=== PATIENT | male | born 1950 | race Caucasian/White ===

== ENCOUNTER 2017-02-28 21:46 | Emergency (ER) | payer BC, OTHER, MEDICARE ==
[~2017-02-28] VITALS: Ht 172.7 cm; Wt 82.0 kg
[~2017-02-28 21:46] MED LIST: AMB10 PO; ASPCH81 PO; CIPR-255 PO; DICY10CA12 PO; DOCU-94 PO; LISI-526 PO; LOVAZA PO; METO50TA16 PO; MULT-884 PEG; SERT1TAB71 PO; XPNIN INH
[2017-02-28 21:58] VITALS: TEMP 36.7; Ht 172.7 cm; Wt 82.0 kg
[2017-02-28] MEDS ORDERED: ZOLP10TA6 PO (22:39)
[2017-02-28] MEDS ORDERED: NTRGSL/4 UT (22:39)
[2017-02-28] MEDS ORDERED: OMEGCAP2 PO (22:39)
[2017-02-28] MEDS ORDERED: ASPI325T45 PO (22:39)
[2017-02-28] MEDS ORDERED: CLOP1TAB15 PO (22:39)
[2017-02-28 23:18] LABS: HEMATOCRIT 39.3 % (42-52); MEAN CELL VOLUME 84.2 fL (80-100); MEAN CORPUSCULAR HEMOGLOBIN 30.8 pg (25-34); MEAN CORPUSCULAR HGB CONC 36.6 g/dl (32-36); MEAN PLATELET VOLUME 9.6 fL (7.4-10.4); PLATELET COUNT 239 K/uL (130-400); RED BLOOD COUNT 4.67 M/uL (4.7-6.1); WHITE BLOOD COUNT 6.22 K/uL (4.8-10.8)
[2017-02-28 23:27] LABS: PARTIAL THROMBOPLASTIN RATIO 1.2; PROTHROMBIN TIME (PATIENT) 10.5 SECONDS (9.0-12.0)
[2017-02-28 23:34] LABS: ALB/GLOB RATIO 1.2 (0.9-2); ALKALINE PHOSPHATASE 70 U/L (45-117); ALT/SGPT 50 U/L (12-78); AST/SGOT 31 U/L (15-37); BLOOD UREA NITROGEN 16 mg/dl (7-18); BUN/CREATININE RATIO 21.3 (10-20); CALCIUM 8.9 mg/dl (8.5-10.1); CARBON DIOXIDE 23 mmol/L (21-32); CHLORIDE 101 mmol/L (98-107); CKMB/CK RATIO 1.6 (0-3.0); CREATININE 0.77 mg/dl (0.60-1.40); GLUCOSE 145 mg/dl (70-99); POTASSIUM 3.9 mmol/L (3.5-5.1); SODIUM 136 mmol/L (136-145)
--- NOTE | 2017-02-28 23:48 | EMERGENCY ROOM VISIT NOTE ---
History Report prepared by Piper: Fernando Travis Under the Supervision of: Dr. Harish Merida M.D. First contact with patient: 23:08 Chief Complaint: CARDIAC ASSESSMENT Stated Complaint: CHEST HURT, LEFT SIDE OF FACE/NECK TINGLING, NAUSE Nursing Triage Summary: Pt reports he developed chest discomfort this evening at approx 1830. Pt reports at approx 1930 he developed N/T in L arm and face. Pt took aspirin following the onset of chest pain and nitro prior to coming to ER. History of Present Illness The patient is a 66 year old male with a history of coronary artery disease who presents to the Emergency Room with complaints of improving chest pain that started at 1830 tonight. The patient describes a tight sensation in the center of his chest. He had similar pain four days ago. He was also experiencing left arm numbness, left leg numbness, and some left jaw / face numbness. The patient had Nitroglycerin prior to arrival, which did not help with the pain. He also had two full-strength Aspirins. He developed a headache and nausea after the nitro. The patient denies shortness of breath, vomiting, back or abdominal pain. He denies any recent episodes of syncope. He has a history of coronary artery disease and had three stents placed at [facility] in 2006. The patient takes Plavix and Aspirin daily. He does not smoke. He has a history of hypertension and hyperlipidemia. Source of History: patient Onset: 1830 tonight Position: chest Quality: other (tightness) Timing: other (improving) Associated Symptoms: + LOC, + headache, + nausea, No SOB, No abdominal pain , No back pain, No vomiting Review of Systems See HPI for pertinent positives & negatives. A total of 10 systems reviewed and were otherwise negative. Past Medical & Surgical Medical Problems: (1) Angioplasty (2) Asthma (3) Benign hypertension (4) Diabetes (5) Heart disease Family History FH: cancer FH: diabetes mellitus FH: heart disease FH: hypertension Social History Smoking Status: Former Smoker Alcohol Use: occasionally Marital Status: Occupation Status: employed Current/Historical Medications Scheduled Aspirin (Aspirin), 325 MG PO DAILY Clopidogrel (Plavix), 75 MG PO DAILY Docusate Sodium (Colace), 1 CAP PO BID Lisinopril (Prinivil), 30 MG PO QAM Metoprolol Tartrate (Lopressor) (Lopressor), 50 MG PO BID Multiple Vitamin (Multi Vitamin Daily), 1 TAB PEG QDL Nitroglycerin (Nitrostat), 0.4 MG UT PRN [place]-3 Fatty Acids (Fish Oil), 1 CAP PO DAILY Sertraline Hcl (Zoloft), 50 MG PO DAILY Zolpidem Tartrate (Zolpidem Tartrate), 1 TAB PO HS Allergies Coded Allergies: POLLEN (Verified Allergy, Intermediate, chest/nasal congestion, 02/28/17) Physical Exam Vital Signs Date Time Temp Pulse Resp B/P Pulse Ox O2 Delivery O2 Flow Rate FiO2 03/01/17 00:30 54 16 124/69 97 Room Air 02/28/17 23:01 97 Room Air 02/28/17 23:00 60 16 113/67 97 Room Air 02/28/17 22:44 63 02/28/17 21:58 36.7 61 20 140/84 96 Room Air Physical Exam GENERAL: Patient is mildly anxious-appearing and in no acute distress. HEENT: No acute trauma, normocephalic atraumatic, mucous membranes moist, no nasal congestion, no scleral icterus. NECK: No stridor, no adenopathy, no meningismus, trachea is midline. LUNGS: No dyspnea. Clear to auscultation and equal bilaterally. No wheeze, no rhonchi. HEART: Regular rate and rhythm. No murmurs, rubs, gallops appreciated. ABDOMEN: Soft, nontender, bowel sounds positive, no masses appreciated, no peritonitis. BACK: No midline tenderness, no CVA tenderness EXTREMITIES: Normal motion all extremities, no cyanosis, no edema. NEUROLOGIC: Alert and oriented, no acute motor or sensory deficits, no focal weakness, cranial nerves grossly intact. SKIN: No rash, no jaundice, no diaphoresis. Medical Decision & Procedures ER Provider Diagnostic Interpretation: X ray results are stated below per my interpretation: Chest: 1 view: No infiltrate, no effusion, normal cardiac border. No change from previous CXR. Laboratory Results 02/28/17 22:45 02/28/17 22:45 Test 02/28/17 22:45 03/01/17 00:13 Red Blood Count 4.67 M/uL (4.7-6.1) Mean Corpuscular Volume 84.2 fL (80-100) Mean Corpuscular Hemoglobin 30.8 pg (25-34) Mean Corpuscular Hemoglobin Concent 36.6 g/dl (32-36) RDW Standard Deviation 36.8 fL (36.4-46.3) RDW Coefficient of Variation 12.0 % (11.5-14.5) Mean Platelet Volume 9.6 fL (7.4-10.4) Prothrombin Time 10.5 SECONDS (9.0-12.0) Prothromb Time International Ratio 1.0 (0.9-1.1) Activated Partial Thromboplast Time 30.1 SECONDS (21.0-31.0) Partial Thromboplastin Ratio 1.2 Anion Gap 12.0 mmol/L (3-11) Est Creatinine Clear Calc Drug Dose 92.5 ml/min Estimated GFR () 110.4 Estimated GFR (Non- 95.2 BUN/Creatinine Ratio 21.3 (10-20) Calcium Level 8.9 mg/dl (8.5-10.1) Total Bilirubin 0.3 mg/dl (0.2-1) Aspartate Amino Transf (AST/SGOT) 31 U/L (15-37) Alanine Aminotransferase (ALT/SGPT) 50 U/L (12-78) Alkaline Phosphatase 70 U/L (45-117) Total Creatine Kinase 361 U/L (39-308) Creatine Kinase MB 5.7 ng/ml (0.5-3.6) Creatine Kinase MB Ratio 1.6 (0-3.0) Troponin I < 0.015 ng/ml (0-0.045) Total Protein 7.2 gm/dl (6.4-8.2) Albumin 3.9 gm/dl (3.4-5.0) Globulin 3.3 gm/dl (2.5-4.0) Albumin/Globulin Ratio 1.2 (0.9-2) Bedside Troponin I 0.000 ng/ml (0-0.045) Laboratory results as reviewed by me. ECG Indication: chest pain Rate (beats per minute): 62 Rhythm: normal sinus Findings: no acute ischemic change, no ectopy Change: Repeat EKG: Normal sinus at 61, no ectopy or ischemic changes. No change from first EKG. ED Course 2310: The patient was evaluated in room A9b. A complete history and physical exam was performed. 2350: Discussed the pros and cons of staying in the hospital versus going home. The patient states that he wishes to go home. He states that his CK is always elevated. 0030: Reassessed the patient. Discussed the discharge instructions with him. He verbalized understanding and agreement and is comfortable going home. The patient is ready for discharge. Medical Decision Differential: Cardiac Ischemia (STEMI, NSTEMI, Unstable Angina, etc), Aortic Dissection, Arrhythmia, Pulmonary Embolism, Pneumonia, Pneumothorax, MSK, Infectious, Pericarditis/Myocarditis, Esophageal Rupture, Gastrointestinal, amongst other pathologies entertained. 66 yr old male with history of stenting several years ago arrives with periodic substernal chest pressure radiating to left shoulder/face/leg. 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 Essentially without symptoms currently. Trop x 2 negative, EKG x 2 unremarkable and otherwise work- up benign. Patient feels well and is not interested in staying in hospital. Discussed risks of discharge with his CAD history. Aware RTED at any time if worsening or other concerns. Made clear to patient he must follow up with PCP/ Cards for further evaluation/testing. He notes he can easily get in with them any time and get stress testing. I do not feel that he is having active ACS, PE , nor dissection. Impression Primary Impression: Substernal chest pain Scribe Attestation The scribe's documentation has been prepared under my direction and personally reviewed by me in its entirety. I confirm that the note above accurately reflects all work, treatment, procedures, and medical decision making performed by me. Departure Information Dispostion Home / Self-Care Referrals Inderjit Luis MD (PCP) Forms IMPORTANT VISIT INFORMATION Patient Instructions ED Chest Pain Atypical Unkn Cause, My [facility] Additional Instructions It is very important that you follow up with your primary care provider for further evaluation and treatment. Especially to discuss further cardiac work- up.
[2017-03-01 00:30] VITALS: BP 124/69; PULSE 54; O2SAT 97
--- NOTE | 2017-03-01 06:48 | DIAGNOSTIC IMAGING REPORT ---
CHEST ONE VIEW PORTABLE CLINICAL HISTORY: Chest pain dyspnea COMPARISON STUDY: 06/06/2016 FINDINGS: The bones soft tissues and hemidiaphragms are normal. The cardiomediastinal silhouette is normal. The lungs are clear. The pulmonary vasculature is normal. IMPRESSION: Negative chest. Electronically signed by: Ricardo Spivey M.D. 03/01/2017 6:46 AM Dictated Date/Time: 03/01/2017 6:46 AM
== END 2017-03-01 00:48 | disposition home or self-care (01) ==
LOC: C.EDB 21:48 → C.EDA 03-01 00:48
DX: R07.2 Precordial pain (principal); J45.909 Unspecified asthma, uncomplicated; I10 Essential (primary) hypertension; E11.9 Type 2 diabetes mellitus without complications; I51.9 Heart disease, unspecified; Z83.3 Family history of diabetes mellitus; Z82.49 Family history of ischemic heart disease and other diseases of the circulatory system; Z87.891 Personal history of nicotine dependence; Z79.82 Long term (current) use of aspirin

== ENCOUNTER → 2017-11-14 | Outpatient (CLI) | payer OTHER, MEDICARE ==
[~2017-11-14] MED LIST changes: -AMB10 PO; -ASPCH81 PO; +ASPI325T45 PO; -CIPR-255 PO; +CLOP1TAB15 PO; -DICY10CA12 PO; -LOVAZA PO; +NTRGSL/4 UT; +OMEGCAP2 PO; +OPTIRAY 320 IV PRN; -XPNIN INH; +ZOLP10TA6 PO
--- NOTE | 2017-11-14 14:33 | DIAGNOSTIC IMAGING REPORT ---
CT OF THE CHEST WITH IV CONTRAST CLINICAL HISTORY: Shortness of breath. Asthma. COMPARISON STUDY: Chest CTs March 17, 2007 and September 04, 2012. TECHNIQUE: Following IV administration of 94 mL of Optiray-320, helical axial images of the chest were obtained. Sagittal and coronal reconstructions were viewed as well as maximal intensity projections on an independent 3-D workstation. A dose lowering technique was utilized adhering to the principles of ALARA. CT DOSE: 445.45 mGycm FINDINGS: No enlarged axillary, mediastinal or hilar lymph nodes are present. The size the heart is normal. There is extensive coronary artery calcification. There is minimal upper lobe predominant paraseptal emphysema. There is a small hiatal hernia. There is no pericardial effusion. No thoracic aortic dissection is present. There is no central pulmonary embolus. The central airways are patent. There is no consolidation to suggest pneumonia. Mild subpleural linear and groundglass opacities suggest atelectasis. There is no pneumothorax or pleural effusion. There is no consolidation. No honeycombing or traction bronchiectasis is present. The bony thorax and upper abdomen are unremarkable. IMPRESSION: 1. No acute intrathoracic findings. 2. Minimal upper lobe predominant paraseptal emphysema. 3. Extensive coronary artery calcification. 4. Small hiatal hernia. Electronically signed by: Shimon Ponce M.D. 11/14/2017 2:32 PM Dictated Date/Time: 11/14/2017 2:22 PM
== END | disposition home or self-care (01) ==
LOC: C.CTS 13:18
PROVIDERS: ATTEND Internal Medicine Pulmonary Disease
DX: J45.909 Unspecified asthma, uncomplicated (principal); R06.02 Shortness of breath; I25.84 Coronary atherosclerosis due to calcified coronary lesion; K44.9 Diaphragmatic hernia without obstruction or gangrene

== ENCOUNTER 2019-03-15 11:38 | Inpatient (IN) ==
[2019-03-15] MEDS ORDERED: SODIUM CHLORIDE 0.9% 1000ML 1,000 ML IV SCH (12:15)
--- NOTE | 2019-03-15 12:21 | XRay Report ---
XR chest 1V portable CLINICAL HISTORY: Stroke like symptoms COMPARISON STUDY: 02/28/2017 FINDINGS: The heart is enlarged. There is aortic tortuosity/ectasia. There is no focal pulmonary cons olidation. There is mild interstitial thickening. An element of mild pulmonary vascular congestion ca nnot be excluded. There are no cystic or pleural effusions.[ IMPRESSION: 1. Mild interstitial thickening. An element of mild pulmonary vascular congestion cannot be excluded. 2. No evidence of focal pulmonary consolidation Electronically signed by: Keshawn Navarro M.D. 03/15/2019 12:20 PM
[2019-03-15 12:49] LABS: Basophils # (auto) 0.05 K/uL (0-0.2); Basophils % (auto) 0.9 %; Eosinophils # (auto) 0.29 K/uL (0-0.5); Eosinophils % (auto) 5.2 %; Hematocrit (blood only) 39.7 % (42-52); Hemoglobin 14.5 g/dL (14.0-18.0); Immature Granulocytes # (auto) 0.02 K/uL (0.00-0.02); Immature Granulocytes % (auto) 0.4 %; Lymphocytes # (auto) 2.21 K/uL (1.2-3.4); Lymphocytes % (auto) 39.8 %; Mean Corpuscular Hgb Conc 36.5 g/dL (32-36); Mean Corpuscular Volume 84.5 fL (80-100); Mean Platelet Volume 9.7 fL (7.4-10.4); Monocytes # (auto) 0.56 K/uL (0.11-0.59); Monocytes % (auto) 10.1 %; Neutrophils # (auto) 2.42 K/uL (1.4-6.5); Neutrophils % (auto) 43.6 %; Platelet Count 229 K/uL (130-400); RDW Coefficient of Variation 12.1 % (11.5-14.5); RDW Standard Deviation 37.4 fL (36.4-46.3); White Blood Count 5.55 K/uL (4.8-10.8)
[2019-03-15 12:58] LABS: Prothrombin Time 10.3 Seconds (9.0-12.0)
[2019-03-15 13:14] LABS: Alanine Aminotransferase 48 U/L (12-78); Albumin Globulin Ratio 1.2 (0.9-2); Albumin Level 3.9 gm/dl (3.4-5.0); Alkaline Phosphatase 67 U/L (45-117); Aspartate Aminotransferase 28 U/L (15-37); BUN Creatinine Ratio 20.6 (10-20); Bilirubin,Total 0.3 mg/dl (0.2-1); Blood Urea Nitrogen 12 mg/dl (7-18); Calcium 8.9 mg/dl (8.5-10.1); Carbon Dioxide 20 mmol/L (21-32); Chloride 100 mmol/L (98-107); Creatinine Clr Calc Pharmacy 128.6 ml/min; Est GFR (African American) 123.2; Est GFR (Non-African American) 106.3; Globulin 3.2 gm/dl (2.5-4.0); Glucose 132 mg/dl (70-99); Potassium 4.2 mmol/L (3.5-5.1); Sodium 130 mmol/L (136-145); Total Protein 7.1 gm/dl (6.4-8.2); Troponin I < 0.015 ng/ml (0-0.045)
--- NOTE | 2019-03-15 13:25 | CT Scan Report ---
CT head/brain wo con CLINICAL HISTORY: Possible stroke. Left leg weakness. Left facial and leg paresthesias. COMPARISON STUDY: MRI the brain performed March 2014 TECHNIQUE: Axial CT of the brain is performed from the vertex to the skull base. IV contrast was not administered for this examination. A dose lowering technique was utilized adhering to the principles of ALARA. CT DOSE: 537.48 mGy.cm FINDINGS: No intra or extra-axial mass lesions are visualized. There is no CT evidence of acute cortical infarc tion. There is no evidence of midline shift. There is no acute hemorrhage. No calvarial fractures ar e visualized. There are patchy minor matter hypodensities likely on a small vessel basis. There is no evidence of pathologic ventricular dilatation. Postsurgical changes are present in the paranasal sinuses. There is no evidence of acute sinusitis. IMPRESSION: No acute intracranial findings Electronically signed by: Keshawn Navarro M.D. 03/15/2019 1:24 PM
[2019-03-15] MEDS ORDERED: MECLIZINE HCL 25 MG TAB PO STA (13:28)
[2019-03-15 13:56] LABS: Lyme Ab IgG w/WB Rflx Negative (Negative); Lyme Ab IgM w/WB Rflx Negative (Negative)
--- NOTE | 2019-03-15 16:54 | Magnetic Resonance Report ---
MRI OF THE BRAIN WITHOUT CONTRAST CLINICAL HISTORY: Left leg weakness. Left facial and leg paresthesias. Possible acute stroke. COMPARISON STUDY: CT scan of the brain dated 03/15/2019 FINDINGS: Sagittal T1, axial diffusion, proton density and T2 weighted axial, coronal FLAIR, and axial T1-weigh ramakrishna images were acquired. No intra or extra-axial mass lesions are visualized There is 7 mm focus of restricted water diffusion within the right lateral thalamus consistent with a n acute/subacute infarct. There is no evidence of ventricular dilatation. Proton density T2-weighted and FLAIR images reveal scattered foci of increased T2 signal within the w vikram matter, likely on a small vessel basis. There is a focus of increased T2 signal corresponding to the acute/subacute right thalamic infarct. There is a lacunar infarct adjacent to the right lateral ventricle anteriorly. There are no abnormal flow voids. IMPRESSION: 1. 7 mm acute/subacute infarct within the right lateral thalamus. Electronically signed by: Keshawn Navarro M.D. 03/15/2019 4:53 PM
--- NOTE | 2019-03-15 17:33 | History & Physical Report ---
Date of Service March 15, 2019 Assessment & Plan (1) CVA (cerebral vascular accident): This is a 68-year-old male who has a significant past medical history of CAD history of PCI x3 in 2007, HTN, HLD, PAD with mesenteric artery stenosis, T2 DM A1c 6.5, history of TIA, history of Lyme's disease with chronic arthralgias, vertigo, depression and anxiety, BPH who presents to [facility] secondary to dizziness along with left-sided numbness times 1 day. ER evaluation reveals unremarkable CBC, BMP significant for sodium 130, potassium 4.2, CO2 20, BUN 12, creatinine 0.57, glucose 132, troponin WNL, Lyme's disease IgG, IgM negative. ECG revealed normal sinus rhythm 61 bpm, OH interval 206 ms, QTc 392 ms Telemetry reveals normal sinus rhythm Patient was hypertensive during ED visit, latest BP 164/96 CT brain negative for acute abnormality After further evaluation of patient there was no neuro focal deficits noted on exam. Ambulated patient about hallway without difficulty or recurrence of symptoms. Patient is adamant about returning home secondary to sons being home for [facility]. Given patient's symptoms it does warrant further evaluation to rule out CVA. Patient is already on dual and a platelet therapy with aspirin and Plavix secondary to CAD He is intolerant to statin and therefore takes Lovaza STAT MRI ordered to rule out CVA MRI: IMPRESSION: 1. 7 mm acute/subacute infarct within the right lateral thalamus. There is a lacunar infarct adjacent to the right lateral ventricle anteriorly. Given MRI results pt will be admitted to telemetry consult neurology - spoke with Dr. Wallace allow permissive HTN 24-48hrs, will hold lisinopril and metoprolol Obtain CTA Head/Neck Echocardiogram Fasting lipid panel, A1C in am. PT/OT/ST eval Risk reduction of comorbidities T2DM, HTN, HLD Increase ASA to 2 - 81mg daily and continue plavix will discuss re-initiation of statin therapy (has trialed in past but d/c secondary to chronic arthralgias from lyme disease) (2) CAD (coronary artery disease): hx of stent x 3 RCA, Cx and OM in 2006 continue ASA, Plavix BB and DANIELLA on hold for permissive HTN (3) HTN (hypertension): Normally controlled on lisinopril and the metoprol Hold in the setting of permissive hypertension (4) T2DM (type 2 diabetes mellitus): Last A1C 6.5 11/2018 obtain A1C in am accuchecks AC/HS Novolog SS per protocol (5) HLD (hyperlipidemia): obtain fasting lipid panel Last Chol Panel 01/09/19 Total cholesterol 153, HDL 31, triglycerides 273, LDL 97 continue lovaza Will discuss statin therapy (6) Chronic hyponatremia: Na stable at 130 Recently saw nephrology 01/2019, felt pseudohyponatremia no fluid restrtiction recommended follow bmp (7) Depression with anxiety: continue zoloft (8) DVT prophylaxis: SCDS/TEDS, encourage ambulation Disposition: d/c to home when able Follow up: PCP Dr. Luis upon discharge Pt was seen and examined in collaboration with Dr. Mcnair, please see addendum Attending Addendum: delayed entry date of service as noted above care coordinated with FLORENCE Hayward please refer to her notes for full details, I agree with her notes patient seen and examined, records reviewed by myself as well on exam, patient seen sitting up in good spirits states his symptoms have resolved denies headache, dizziness no chest pain, dyspnea no other symptoms VS noted and reviewed oriented x 3, not in distress, speaks in sentences with no effort nor accessory muscle use normal rate, regular rhythm, no murmurs clear breath sounds bilaterally non distended, soft, nontender no bipedal edema, erythema, warmth no neuro deficits noted Hg 14.5 Crea 0.57 Brain MRI IMPRESSION: 1. 7 mm acute/subacute infarct within the right lateral thalamus. ASSESSMENT AND PLAN ACUTE CVA increase ASA to 162mg/day HTN hold Lisinopril to prevent hypotension Tristen Mcnair MD other diagnoses and plan of care as per FLORENCE Hayward notes Eddie Mcnair MD History of Present Illness Chief Complaint: Dizziness, numbness to L hand/upper lip x 1 day. Primary Care Provider: Inderjit Luis MD This is a 68-year-old male who has a significant past medical history of CAD history of PCI x3 in 2007, HTN, HLD, PAD with mesenteric artery stenosis, T2 DM A1c 6.5, history of TIA, history of Lyme's disease with chronic arthralgias, vertigo, depression and anxiety, BPH who presents to [facility] secondary to dizziness along with left-sided numbness times 1 day. Patient states yesterday afternoon he was getting off tractor whenever he developed dizziness, "wooziness," his left leg buckled. He did not fall. Because of dizziness he went home to lay down to, "sleep it off." He noticed later that evening his left hand felt numb, along with left upper lip. He states "I figured if I woke up in the morning and symptoms were still there I would come get evaluated." Currently upon my evaluation he feels well with occasional, "wooziness." He denies any fever, chills, sweats, recent illness, lightheadedness, syncope, fall, chest pain, palpitations, shortness of breath, LOPEZ, hemoptysis, nausea, vomiting, diarrhea, change in bowel or urinary habits. He has had slight weight gain over the winter months but no swelling of extremities. His appetite is good. Patient notes the dizziness is not new for him as he has been following with outpatient providers for approximately 4 months. He was alarmed due to the change of symptoms with the numbness which prompted evaluation. Patient has been followed by Dr. Hunt in which he underwent zio patch 11/2018 which showed predominant normal sinus rhythm but there was apparent 2-1-second degree AV block type I. It was felt that patient may require a pacer in the future, but not currently. He had a carotid ultrasound back in 08/2018 which revealed no hemodynamic significant stenosis of the bilateral carotids. Saw Dr. Wallace 09/02/19 in which he was felt symptoms are secondary to recurrent vestibulopathy Pt saw [facility] otolaryngology vest[facility] and felt symptoms not likely from BPPV or vestibular dysfunction and was discharged from rehab. 12/24/18 A1C 6.5 12/26/18 patient underwent NM myocardial perfusion imaging study which was nega tive for inducible ischemia, LVEF 78% 01/09/19 cholesterol panel: Total cholesterol 153, HDL 31, triglycerides 273, LDL 97 (patient is statin intolerant secondary to history of Lyme's disease with chr onic arthralgias and does not tolerate statin therefore is on fish oil.) 01/2019 saw nephrology secondary to chronic hyponatremia. It was felt hyponatremia may be secondary to pseudohyponatremia and at this time there is no recommendation for fluid restriction or NaCl tabs. He had a Serum osmolality 291, urine osmolality 238, random urine sodium 58. Allergies Allergy/AdvReac Type Severity Reaction Status Date / Time pollen extracts Allergy Intermediate chest/nasal Verified 03/15/19 13:11 congestion Home Medications Home Medications Medication Instructions Recorded Confirmed Type clopidogrel [Plavix] 75 mg PO DAILY 03/15/19 03/15/19 History metoprolol tartrate 25 mg PO BID 03/15/19 03/15/19 History multivitamin 1 tab PO DAILY 03/15/19 03/15/19 History nitroglycerin [Nitrostat] 0.4 mg SUBLINGUAL DIRECTED PRN 03/15/19 03/15/19 History omega-3 acid ethyl esters [Lovaza] 2 cap PO DAILY 03/15/19 03/15/19 History sertraline 50 mg PO DAILY 03/15/19 03/15/19 History zolpidem [Ambien] 5 mg PO HS 03/15/19 03/15/19 History aspirin [Ecotrin Low Strength] 162 mg PO DAILY 30 Days #60 tab 03/16/19 Rx rosuvastatin [Crestor] 5 mg PO HS 30 Days #30 tab 03/16/19 Rx Past Med/Surg History Medical History TIA (transient ischemic attack) (Resolved) BPH (benign prostatic hyperplasia) CAD (coronary artery disease) Depression with anxiety HLD (hyperlipidemia) HTN (hypertension) History of Lyme disease T2DM (type 2 diabetes mellitus) Vertigo Surgical History H/O colonoscopy with polypectomy History of nasal surgery History of percutaneous coronary intervention History of PCI to right coronary artery, circumflex and OM at [facility] 2006 History of right inguinal hernia repair Social History Preferred Language: Pashto Communication Ability: Effective Beliefs That Will Affect Care: None marital status: Current Living Situation: Spouse current occupational status: employed current occupation: [employer] Other Information That Helps Us Care for You: No Feels Safe at Home: Yes Safety Concerns: Feels Safe At This Time Smoking Status: Former smoker Hx Alcohol Use: Yes Alcohol type: wine Hx Substance Use: No Review of Systems Review of Systems: All systems reviewed & are unremarkable except as noted in HPI & below Physical Exam Physical Exam: Gen: WD/WN, M, NAD, sitting up in bed, pleasant, conversing easily Head: Normocephalic, Atraumatic Eyes: Sclera normal, no conjunctival injection, PERRLA, EOMI, horizontal nystagmus R eye ENT: Gross hearing intact, inner ear canal and EAC WNL b/l, TM visualized and normal, normal pharynx, mucous membranes moist Neck: supple, no adenopathy, No JVD, no bruit, Resp: Clear to auscultation b/l, no wheeze, rales, rhonchi. 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 Extremities: No edema bilaterally Skin: warm, moist, no rash, negative turgor, cap refill < 2sec Neuro: Alert and oriented x 3, speech normal, good mood/affect, cran nerve 2-12 intact grossly, b/l patellar, Achilles, biceps reflex +2 : deferred Results & Data Vital Signs (Past 12 Hours) Vital Signs Temp Pulse Pulse Resp BP BP Pulse Ox 03/15/19 15:05 58 L 18 164/96 H 95 03/15/19 13:31 94 03/15/19 13:26 56 L 18 145/87 H 94 03/15/19 11:48 36.7 C 63 16 152/102 H 98 Laboratory Results Short CBC 03/15/19 Range/Units 12:25 WBC 5.55 (4.8-10.8) K/uL Hgb 14.5 (14.0-18.0) g/dL Hct 39.7 L (42-52) % Plt Count 229 (130-400) K/uL BMP 03/15/19 12:25 Sodium 130 L Potassium 4.2 Chloride 100 Carbon Dioxide 20 L BUN 12 Creatinine 0.57 L Glucose 132 H Calcium 8.9 Cardiac Enzymes 03/15/19 Range/Units 12:25 Troponin I < 0.015 (0-0.045) ng/ml Liver Function 03/15/19 Range/Units 12:25 Total Bilirubin 0.3 (0.2-1) mg/dl AST 28 (15-37) U/L ALT 48 (12-78) U/L Alkaline Phosphatase 67 (45-117) U/L Albumin 3.9 (3.4-5.0) gm/dl Diagnostic Findings Brain MRI: IMPRESSION: 1. 7 mm acute/subacute infarct within the right lateral thalamus. Head CT: No intra or extra-axial mass lesions are visualized. There is no CT evidence of acute cortical infarction. There is no evidence of midline shift. There is no acute hemorrhage. No calvarial fractures are visualized. There are patchy minor matter hypodensities likely on a small vessel basis. There is no evidence of pathologic ventricular dilatation. Postsurgical changes are present in the paranasal sinuses. There is no evidence of acute sinusitis. IMPRESSION: No acute intracranial findings CXR: IMPRESSION: 1. Mild interstitial thickening. An element of mild pulmonary vascular congestion cannot be excluded. 2. No evidence of focal pulmonary consolidation Medications Administered Discontinued Medications Sodium Chloride (Nss 1000ml) 1,000 mls @ 999 mls/hr IV .Q1H1M JUMA Stop: 03/15/19 13:15 Last Infusion: 03/15/19 15:07 Dose: 0 mls/hr Documented by: [id number] Admin: 03/15/19 12:40 Dose: 999 mls/hr Documented by: [id number] Meclizine HCl (Antivert) 25 mg PO NOW STA Stop: 03/15/19 13:29 Last Admin: 03/15/19 13:34 Dose: 25 mg Documented by: [id number] ECG Rate (beats per minute): 61 Rhythm: normal sinus Code Status & VTE Plan Code Status Full Code VTE Prophylaxis Plan VTE Prophylaxis will be ordered: Yes (1) CVA (cerebral vascular accident) CVA mechanism: unspecified Qualified Code(s): I63.9 - Cerebral infarction, unspecified
[2019-03-15] MEDS ORDERED: PHARMACIST DISCHARGE MED REC CONSULT PRN (18:25)
--- NOTE | 2019-03-15 18:32 | Emergency Department Note ---
Entered by Indy Nath acting as a scribe for Dejan Hughes DO History of Present Illness General Chief complaint: Vertigo Stated complaint: DIZZY, NUMBNESS ON LT SIDE, STUMBLING Source: patient History of Present Illness Onset (ago): day(s) (yesterday) Location: mouth (left side) and left (arm, leg, fingertips, shoulder) Severity: similar to prior episodes (when he had vertigo last year) Pain Consistency: + other (episode) Quality: + other (vertigo, feeling "stumbly and off balance") Associated symptoms: + weakness (left arm, leg, shoulder) and + other (Positive dizziness, tingling in his left fingertips); no chest pain and no shortness of breath The patient is a 68 year old male who presents to the Emergency Room with complaints of vertigo beginning yesterday. He states yesterday he was on a tractor and when he got off, he stumbled and felt he had vertigo and dizziness. He states this felt similar to when he had vertigo last July however, he has left sided numbness and weakness in his arm and leg which is new. Currently, he states he has tingling in his left fingertips and some numbness on the left side of his mouth. The patient states he noticed he had weakness in his left shoulder when he was holding a bucket but he does not currently have weakness. He reports he feels "stumbly and off balance." Pt denies any chest pain, SOB. Pt has a hx of 3 stents, high blood pressure, high cholesterol, and a TIA. Home Medications Home Medications Medication Instructions Recorded Confirmed Type aspirin 81 mg PO DAILY 03/15/19 03/15/19 History clopidogrel [Plavix] 75 mg PO DAILY 03/15/19 03/15/19 History lisinopril [Zestril] 30 mg PO DAILY 03/15/19 03/15/19 History metoprolol tartrate 25 mg PO BID 03/15/19 03/15/19 History multivitamin 1 tab PO DAILY 03/15/19 03/15/19 History nitroglycerin [Nitrostat] 0.4 mg SUBLINGUAL DIRECTED PRN 03/15/19 03/15/19 History omega-3 acid ethyl esters [Lovaza] 2 cap PO DAILY 03/15/19 03/15/19 History sertraline 50 mg PO DAILY 03/15/19 03/15/19 History zolpidem [Ambien] 5 mg PO HS 03/15/19 03/15/19 History Allergies Allergy/AdvReac Type Severity Reaction Status Date / Time pollen extracts Allergy Intermediate chest/nasal Verified 03/15/19 13:11 congestion Past Med/Surg History Medical History CAD (coronary artery disease) (Chronic) T2DM (type 2 diabetes mellitus) (Chronic) History of Lyme disease (Chronic) Vertigo (Chronic) Depression with anxiety (Chronic) BPH (benign prostatic hyperplasia) (Chronic) HTN (hypertension) (Chronic) HLD (hyperlipidemia) (Chronic) TIA (transient ischemic attack) (Resolved) Surgical History H/O colonoscopy with polypectomy (Chronic) History of nasal surgery (Chronic) History of right inguinal hernia repair (Chronic) History of percutaneous coronary intervention (Chronic) History of PCI to right coronary artery, circumflex and OM at [facility] 2006 Social History Preferred Language: Greenlandic Communication Ability: Effective marital status: Current Living Situation: Spouse current occupational status: employed current occupation: [employer] Feels Safe at Home: Yes Smoking Status: Former smoker Hx Alcohol Use: Yes Hx Substance Use: No Review of Systems See HPI for pertinent positives & negatives. and A total of 10 systems reviewed and were otherwise negative Physical Exam Vital Signs Vital Signs - 24 hr 03/15/19 11:48 03/15/19 13:26 03/15/19 13:31 Temperature 36.7 C Temperature Source Oral Sepsis Recent Fever Within 48 Hours No Sepsis New/Unexplained Change in Mental Status No Sepsis Action Taken by Nursing No Action Required Pulse Rate - Lying 56 L Pulse Rate - Sitting 60 Pulse Rate - Standing 58 L Pulse Rate 63 Pulse Rate [Apical] 56 L Pulse Rhythm Regular Respiratory Rate 16 18 Respiratory Effort / Characteristics Non-Labored Spontaneous Respiratory Depth Normal Respiratory Pattern Regular Blood Pressure - Lying 145/87 H Blood Pressure - Sitting 167/110 H Blood Pressure- Standing 179/100 H Blood Pressure 152/102 H Blood Pressure [Left Arm] 145/87 H Blood Pressure Mean 118 Blood Pressure Mean [Left Arm] 106 Blood Pressure Position [Left Arm] Lying Pulse Oximetry 98 94 94 Oxygen Delivery Method Room Air Room Air Room Air 03/15/19 15:05 03/15/19 17:35 Temperature Temperature Source Sepsis Recent Fever Within 48 Hours Sepsis New/Unexplained Change in Mental Status Sepsis Action Taken by Nursing Pulse Rate - Lying Pulse Rate - Sitting Pulse Rate - Standing Pulse Rate Pulse Rate [Apical] 58 L 70 Pulse Rhythm Respiratory Rate 18 18 Respiratory Effort / Characteristics Respiratory Depth Respiratory Pattern Blood Pressure - Lying Blood Pressure - Sitting Blood Pressure- Standing Blood Pressure Blood Pressure [Left Arm] 164/96 H 155/93 H Blood Pressure Mean Blood Pressure Mean [Left Arm] 118 113 Blood Pressure Position [Left Arm] Pulse Oximetry 95 94 Oxygen Delivery Method Room Air Room Air GENERAL: Sitting up in bed, alert, well appearing, well nourished, no distress, non-toxic EYE EXAM: normal conjunctiva. PERRL and EOM's intact. OROPHARYNX: no exudate, no erythema, lips, buccal mucosa, and tongue normal and mucous membranes are moist NECK: supple, no nuchal rigidity, no adenopathy, non-tender LUNGS: Clear to auscultation. Normal chest wall mechanics HEART: no murmurs, S1 normal and S2 normal ABDOMEN: abdomen soft, non-tender, normo-active bowel, sounds, no masses, no rebound or guarding. BACK: Back is symmetrical on inspection and there is no deformity, no midline tenderness, no CVA tenderness. SKIN: no rashes and no bruising UPPER EXTREMITIES: upper extremities are grossly normal. LOWER EXTREMITIES: No pitting edema. NEURO EXAM: Normal sensorium, cranial nerves II-XII intact, normal speech, no weakness of arms, no weakness of legs. No drift. Finger to nose intact. Gross sensation intact. Course ED COURSE: Vital signs were reviewed and showed hypertensive The patients medical record was reviewed The above diagnostic studies were performed and reviewed. ED treatments and interventions as stated above. 1155: The patient was evaluated in room C9. A complete history and physical examination was performed. 1415: Upon reevaluation, the patient is agreeable to being further evaluated. I discussed my findings with the patient and he understands and agrees with the treatment plan. 1426: I reviewed the patient's case with Dr. Torres, [facility] Hospitalist. He will evaluate the patient for further management. Based on the patients age, coexisting illnesses, exam and lab findings the decision to treat as an inpatient was made. The patient remained stable while under my care. The patient will be evaluated for further management. Consultations Consultation #1: I reviewed the patient's case with Dr. Torres, [facility] Hospitalist. He will evaluate the patient for further management. Time: 14:26 Administered Medications Discontinued Medications Sodium Chloride (Nss 1000ml) 1,000 mls @ 999 mls/hr IV .Q1H1M JUMA Stop: 03/15/19 13:15 Last Infusion: 03/15/19 15:07 Dose: 0 mls/hr Documented by: [id number] Admin: 03/15/19 12:40 Dose: 999 mls/hr Documented by: [id number] Meclizine HCl (Antivert) 25 mg PO NOW STA Stop: 03/15/19 13:29 Last Admin: 03/15/19 13:34 Dose: 25 mg Documented by: [id number] Medical Decision Making Differential Diagnosis Differential Diagnosis includes but is not limited to ischemic Stroke, hemorrhagic stroke, bells palsy, mass, neoplasm, migraine headache, seizure, subarachnoid hemorrhage, TIA, and transient global amnesia. Home Medications Current Medication List: was personally reviewed by me Laboratory Data Attestation: I reviewed the patient's lab results. Result diagrams: 03/15/19 12:25 03/15/19 12:25 Lab Results 03/15/19 03/15/19 03/15/19 Range/Units 12:25 12:25 12:25 WBC 5.55 (4.8-10.8) K/uL RBC 4.70 (4.7-6.1) M/uL Hgb 14.5 (14.0-18.0) g/dL Hct 39.7 L (42-52) % MCV 84.5 (80-100) fL MCH 30.9 (25-34) pg MCHC 36.5 H (32-36) g/dL RDW Std Deviation 37.4 (36.4-46.3) fL RDW Coeff of John 12.1 (11.5-14.5) % Plt Count 229 (130-400) K/uL MPV 9.7 (7.4-10.4) fL Immature Gran % (Auto) 0.4 % Neut % (Auto) 43.6 % Lymph % (Auto) 39.8 % Upton % (Auto) 10.1 % Eos % (Auto) 5.2 % Baso % (Auto) 0.9 % Immature Gran # (Auto) 0.02 (0.00-0.02) K/uL Neut # (Auto) 2.42 (1.4-6.5) K/uL Lymph # (Auto) 2.21 (1.2-3.4) K/uL Upton # (Auto) 0.56 (0.11-0.59) K/uL Eos # (Auto) 0.29 (0-0.5) K/uL Baso # (Auto) 0.05 (0-0.2) K/uL PT 10.3 (9.0-12.0) Seconds INR 1.0 (0.9-1.1) Sodium 130 L (136-145) mmol/L Potassium 4.2 (3.5-5.1) mmol/L Chloride 100 (98-107) mmol/L Carbon Dioxide 20 L (21-32) mmol/L Anion Gap 11.0 (3-11) BUN 12 (7-18) mg/dl Creatinine 0.57 L (0.6-1.4) mg/dl Est Cr Clr Drug Dosing 128.6 ml/min Est GFR ( Amer) 123.2 Est GFR (Non-Af Amer) 106.3 BUN/Creatinine Ratio 20.6 H (10-20) Glucose 132 H (70-99) mg/dl Calcium 8.9 (8.5-10.1) mg/dl Total Bilirubin 0.3 (0.2-1) mg/dl AST 28 (15-37) U/L ALT 48 (12-78) U/L Alkaline Phosphatase 67 (45-117) U/L Troponin I < 0.015 (0-0.045) ng/ml Total Protein 7.1 (6.4-8.2) gm/dl Albumin 3.9 (3.4-5.0) gm/dl Globulin 3.2 (2.5-4.0) gm/dl Albumin/Globulin Ratio 1.2 (0.9-2) Specimen Hemolysis Lyme Disease IgG Ab (Negative) Lyme Disease IgM Ab (Negative) 03/15/19 Range/Units 12:39 WBC (4.8-10.8) K/uL RBC (4.7-6.1) M/uL Hgb (14.0-18.0) g/dL Hct (42-52) % MCV (80-100) fL MCH (25-34) pg MCHC (32-36) g/dL RDW Std Deviation (36.4-46.3) fL RDW Coeff of John (11.5-14.5) % Plt Count (130-400) K/uL MPV (7.4-10.4) fL Immature Gran % (Auto) % Neut % (Auto) % Lymph % (Auto) % Upton % (Auto) % Eos % (Auto) % Baso % (Auto) % Immature Gran # (Auto) (0.00-0.02) K/uL Neut # (Auto) (1.4-6.5) K/uL Lymph # (Auto) (1.2-3.4) K/uL Upton # (Auto) (0.11-0.59) K/uL Eos # (Auto) (0-0.5) K/uL Baso # (Auto) (0-0.2) K/uL PT (9.0-12.0) Seconds INR (0.9-1.1) Sodium (136-145) mmol/L Potassium (3.5-5.1) mmol/L Chloride (98-107) mmol/L Carbon Dioxide (21-32) mmol/L Anion Gap (3-11) BUN (7-18) mg/dl Creatinine (0.6-1.4) mg/dl Est Cr Clr Drug Dosing ml/min Est GFR ( Amer) Est GFR (Non-Af Amer) BUN/Creatinine Ratio (10-20) Glucose (70-99) mg/dl Calcium (8.5-10.1) mg/dl Total Bilirubin (0.2-1) mg/dl AST (15-37) U/L ALT (12-78) U/L Alkaline Phosphatase (45-117) U/L Troponin I (0-0.045) ng/ml Total Protein (6.4-8.2) gm/dl Albumin (3.4-5.0) gm/dl Globulin (2.5-4.0) gm/dl Albumin/Globulin Ratio (0.9-2) Specimen Hemolysis Lyme Disease IgG Ab Negative (Negative) Lyme Disease IgM Ab Negative (Negative) Imaging Data Radiologist's Impression: Radiology results as stated below per my review and the radiologist's interpretation: XR chest 1V portable CLINICAL HISTORY: Stroke like symptoms COMPARISON STUDY: 02/28/2017 FINDINGS: The heart is enlarged. There is aortic tortuosity/ectasia. There is no focal pulmonary consolidation. There is mild interstitial thickening. An element of mild pulmonary vascular congestion cannot be excluded. There are no cystic or pleural effusions.[ IMPRESSION: 1. Mild interstitial thickening. An element of mild pulmonary vascular congestion cannot be excluded. 2. No evidence of focal pulmonary consolidation Electronically signed by: Keshawn Naavrro M.D. 03/15/2019 12:[address] head/brain wo con CLINICAL HISTORY: Possible stroke. Left leg weakness. Left facial and leg paresthesias. COMPARISON STUDY: MRI the brain performed March 2014 TECHNIQUE: Axial CT of the brain is performed from the vertex to the skull base. IV contrast was not administered for this examination. A dose lowering technique was utilized adhering to the principles of ALARA. CT DOSE: 537.48 mGy.cm FINDINGS: No intra or extra-axial mass lesions are visualized. There is no CT evidence of acute cortical infarction. There is no evidence of midline shift. There is no acute hemorrhage. No calvarial fractures are visualized. There are patchy minor matter hypodensities likely on a small vessel basis. There is no evidence of pathologic ventricular dilatation. Postsurgical changes are present in the paranasal sinuses. There is no evidence of acute sinusitis. IMPRESSION: No acute intracranial findings Electronically signed by: Keshawn Navarro M.D. 03/15/2019 1:24 PM MRI OF THE BRAIN WITHOUT CONTRAST CLINICAL HISTORY: Left leg weakness. Left facial and leg paresthesias. Possible acute stroke. COMPARISON STUDY: CT scan of the brain dated 03/15/2019 FINDINGS: Sagittal T1, axial diffusion, proton density and T2 weighted axial, coronal FLAIR, and axial T1-weighted images were acquired. No intra or extra-axial mass lesions are visualized There is 7 mm focus of restricted water diffusion within the right lateral thalamus consistent with an acute/subacute infarct. There is no evidence of ventricular dilatation. Proton density T2-weighted and FLAIR images reveal scattered foci of increased T2 signal within the white matter, likely on a small vessel basis. There is a focus of increased T2 signal corresponding to the acute/subacute right thalamic infarct. There is a lacunar infarct adjacent to the right lateral ventricle anteriorly. There are no abnormal flow voids. IMPRESSION: 1. 7 mm acute/subacute infarct within the right lateral thalamus. Electronically signed by: Keshawn Navarro M.D. 03/15/2019 4:53 PM ECG Data Attestation: I personally reviewed and interpreted this ECG as follows: Indication: other (vertigo) Rate (beats per minute): 61 Rhythm: normal sinus Findings: + other (normal axis); no PVC Blood Pressure Blood Pressure Findings: Elevated blood pressure Blood Pressure Disposition: further management by hospitalist BENNETT Narrative Patient is a 68-year-old male who presents the ER for left-sided weakness associated with dizziness which started yesterday. Labs show no significant leukocytosis or anemia. INR was unremarkable. BMP with mild hyponatremia. LFTs bilirubin and troponin was unremarkable. CT head was negative. EKG was unremarkable. Initially patient went to leave but eventually was agreeable. Medicine after evaluation recommended MRI and if negative to be discharged but MRI did result with a positive stroke. Patient was updated bedside admitted to the hospital for stroke. Impression & Plan CVA (cerebral vascular accident) Discharge Plan Visit Data *Final* Discharge Date/Time: 03/15/19 17:43 Chief Complaint: Vertigo Stated Complaint: DIZZY, NUMBNESS ON LT SIDE, STUMBLING ED Provider: Dejan Hughes Discharge Problem: CVA (cerebral vascular accident) Patient Disposition: Admitted As Inpatient Discharge Instructions Interventions: ED Discharge Assessment Last Done: 03/15/19 17:43 Discharge Problem: CVA (cerebral vascular accident) Qualifiers: CVA mechanism: unspecified Qualified Code(s): I63.9 - Cerebral infarction, unspecified The scribe's documentation has been prepared under my direction and personally reviewed by me in its entirety. I confirm that the note above accurately reflects all work, treatment, procedures, and medical decision making performed by me.
[2019-03-15] MEDS ORDERED: GLUCOSE 10 TABS/TUBE PO PRN (19:55)
[2019-03-15] MEDS ORDERED: DEXTROSE 50% 50 ML SYRINGE IV PRN (19:55)
[2019-03-15] MEDS ORDERED: CARBOHYDRATES FOR HYPOGLYCEMIA PO PRN (19:55)
[2019-03-15] MEDS ORDERED: GLUCOSE 40% GEL 15 GM TUBE PO PRN (19:55)
[2019-03-15] MEDS ORDERED: GLUCAGON FOR INJ 1 MG VIAL SQ PRN (19:55)
[2019-03-15] MEDS ORDERED: OPTIRAY 320 125ml IV PRN (20:22)
--- NOTE | 2019-03-15 20:41 | CT Scan Report ---
CT angio head w con CLINICAL HISTORY: Acute thalamic infarct TECHNIQUE: CT angiography of the head was performed in a dynamic helical fashion during intravenous a dministration of 120 cc of Optiray 320. MIP imaging was performed. A dose lowering technique was util ized adhering to the principles of ALARA. CT DOSE: 554.88 mGy.cm COMPARISON STUDY: MRI the brain dated 03/15/2019 FINDINGS: There are no lesion suspicious for aneurysm. There are no major intracranial branch occlusi ons. The dural venous sinuses appear patent. IMPRESSION: Unremarkable CT angiography of the brain. Electronically signed by: Keshawn Navarro M.D. 03/15/2019 8:40 PM
--- NOTE | 2019-03-15 20:46 | CT Scan Report ---
CT angio neck with con CLINICAL HISTORY: Acute right thalamic infarct COMPARISON STUDY: Carotid Doppler ultrasound performed March 2014 TECHNIQUE: CT angiography was performed from the aortic arch to the skull base. MIP imaging was perfo rmed. The patient was scanned in a dynamic helical fashion during intravenous administration of 120 c c of Optiray 320. A dose lowering technique was utilized adhering to the principles of ALARA. CT DOSE: Technique: CT angiogram of the carotid and vertebral arteries was obtained using intravenous contrast and 3-D reconstruction. NASCET criteria was utilized. MIP imaging was performed Findings: There is a 21 mm left lobe thyroid nodule. A nonemergent thyroid ultrasound is recommended in follow- up. The right carotid revealed no evidence of aneurysm and no evidence of dissection. There is no evidenc e of hemodynamic significant stenosis. There is moderate calcific plaque at the level of the bulb. The left carotid revealed no evidence of hemodynamic significant stenosis. There is no evidence of an eurysm. There is no evidence of dissection. There is moderate calcific plaque at the level of the bul b. There is no evidence of hemodynamically significant vertebral stenosis. There is no evidence of verte bral dissection. There is a dominant left vertebral artery. IMPRESSION: 1. Moderate calcific plaque at the level of both carotid bulbs. No evidence of unilaterally significa nt carotid stenosis 2. Dominant left vertebral. No evidence of vertebral artery stenosis 3. 21 mm left lobe thyroid nodule. Nonemergent thyroid ultrasound is recommended in follow-up. Electronically signed by: Keshawn Navarro M.D. 03/15/2019 8:45 PM
[2019-03-15] MEDS ORDERED: ROSUVASTATIN CALCIUM 5 MG TAB PO SCH (21:00)
[2019-03-15] MEDS ORDERED: ZOLPIDEM TARTRATE 5 MG TAB PO SCH (21:00)
[2019-03-15] MEDS: INSULIN ASPART 100 UNITS/ML 3 ML PEN SC SCH (22:23)
[2019-03-16 08:06] LABS: Basophils # (auto) 0.04 K/uL (0-0.2); Basophils % (auto) 0.8 %; Eosinophils # (auto) 0.24 K/uL (0-0.5); Eosinophils % (auto) 4.8 %; Hematocrit (blood only) 41.8 % (42-52); Hemoglobin 14.9 g/dL (14.0-18.0); Immature Granulocytes # (auto) 0.03 K/uL (0.00-0.02); Immature Granulocytes % (auto) 0.6 %; Lymphocytes # (auto) 1.75 K/uL (1.2-3.4); Lymphocytes % (auto) 35.2 %; Mean Corpuscular Hgb Conc 35.6 g/dL (32-36); Mean Corpuscular Volume 85.5 fL (80-100); Mean Platelet Volume 9.7 fL (7.4-10.4); Monocytes # (auto) 0.51 K/uL (0.11-0.59); Monocytes % (auto) 10.3 %; Neutrophils % (auto) 48.3 %; Platelet Count 197 K/uL (130-400); RDW Coefficient of Variation 12.4 % (11.5-14.5); RDW Standard Deviation 38.4 fL (36.4-46.3); Red Blood Count 4.89 M/uL (4.7-6.1); White Blood Count 4.97 K/uL (4.8-10.8)
[2019-03-16] MEDS: INSULIN ASPART 100 UNITS/ML 3 ML PEN SC SCH (08:31)
[2019-03-16 08:33] LABS: BUN Creatinine Ratio 14.2 (10-20); Calcium 8.8 mg/dl (8.5-10.1); Creatinine Clr Calc Pharmacy 98.5 ml/min; Est GFR (African American) 110.6; Est GFR (Non-African American) 95.4; Potassium 4.4 mmol/L (3.5-5.1)
[2019-03-16] MEDS ORDERED: SERTRALINE HCL 50 MG TABLET PO SCH ×2 (09:00→21:00)
[2019-03-16] MEDS ORDERED: CLOPIDOGREL BISULFATE 75 MG TAB PO SCH ×2 (09:00→21:00)
[2019-03-16] MEDS ORDERED: MULTIVITAMIN TAB PO SCH (09:00)
[2019-03-16] MEDS ORDERED: ASPIRIN 81 MG ECTAB PO SCH ×2 (09:00)
--- NOTE | 2019-03-16 09:00 | Hospitalist Progress Note ---
Date of Service delayed entry date of service as noted below March 16, 2019 Assessment & Plan (1) CVA (cerebral vascular accident): ACUTE CVA This is a 68-year-old male who has a significant past medical history of CAD history of PCI x3 in 2007, HTN, HLD, PAD with mesenteric artery stenosis, T2 DM A1c 6.5, history of TIA, history of Lyme's disease with chronic arthralgias, vertigo, depression and anxiety, BPH who presents to [facility] secondary to dizziness along with left-sided numbness times [address] brain negative for acute abnormality MRI Brain: 1. 7 mm acute/subacute infarct within the right lateral thalamus. CT angio head: Unremarkable CT angiography of the brain. CT neck: 1. Moderate calcific plaque at the level of both carotid bulbs. No evidence of unilaterally significant carotid stenosis 2. Dominant left vertebral. No evidence of vertebral artery stenosis 3. 21 mm left lobe thyroid nodule. Nonemergent thyroid ultrasound is recommended in follow-up. Echo: no wall motion abnormalities, normal EF, no interatrial shunt A1c 6.6 TG 403, LDL could not be measured Neurologist consulted recommend to increase Aspirin to 162mg daily, continue Plavix add Crestor, monitor for side effects, patient has history of side effects with other Statins ff up with Dr. Wallace in 4-6 weeks (2) CAD (coronary artery disease): hx of stent x 3 RCA, Cx and OM in 2006 continue ASA, Plavix hold Lisinopril until seen by Dr. Luis 03/19 continue Bblocker (3) HTN (hypertension): hold Lisinopril until seen by Dr. Luis 03/19 continue Bblocker (4) T2DM (type 2 diabetes mellitus): Last A1C 6.5 11/2018 a1c 6.6--> ff up as outpatient (5) HLD (hyperlipidemia): TG 403, LDL could not be measured continue lovaza add Crestor, monitor for side effects, patient has history of side effects with other Statins (6) Chronic hyponatremia: Na 135 (7) Depression with anxiety: stable continue zoloft THYROID NODULE seen on CT angio neck: 21 mm left lobe thyroid nodule. Nonemergent thyroid ultrasound is recommended in follow-up. TSH 1.21 - thyroid US, ff up as outpatient (8) DVT prophylaxis: Disposition: d/c to home ff up with PCP 03/19 ff up with Neuro 4-6 weeks Subjective ff up for CVA seen resting in bed, comfortable in good spirits states he feels fine overall left sided weakness and other neuro deficits resolved denies chest pain, palpitations, dizziness no other symptoms states he is ready and would like to be discharged Review of Systems Review of Systems: All systems reviewed & are unremarkable except as noted in HPI & below Physical Exam Physical Exam: General- oriented x 3, not in distress, speaks in sentences with no effort or accessory muscle use Eyes- anicteric Neck- no JVD Lungs- clear breath sounds bilaterally Heart- normal rate, regular rhythm; no murmurs Abdomen- normal bowel sounds, nondistended, soft, nontender Extremities- no pretibial edema, no calf tenderness Neuro- alert, oriented x 3; no gross focal neurologic deficits Skin- warm & dry Results & Data Vital Signs (Past 12 Hours) Vital Signs Temp Pulse Pulse Resp BP Pulse Ox 03/16/19 07:17 36.8 C 69 18 143/98 H 95 03/16/19 04:00 36.7 C 104 H 16 116/78 96 03/16/19 00:00 69 03/15/19 23:53 36.7 C 18 96 Laboratory Results all noted and reviewed (1) CVA (cerebral vascular accident) CVA mechanism: unspecified Qualified Code(s): I63.9 - Cerebral infarction, unspecified
[2019-03-16] MEDS ORDERED: STROKE PATIENT DISCHARGE STA (11:24)
--- NOTE | 2019-03-16 11:34 | Communication Note ---
Date of Service: March 16, 2019 I have seen this man in the accompaniment of Dr. Lane, reviewed his history, perform examination reviewed his imaging and laboratory studies only pending diagnostic studies and echocardiogram at least the interpretation of the study itself has been done. Mr. Rivera is 68 years old has a host of vascular risk factors and is known to me from prior extensive evaluation for episodic vertigo last fall which was unremarkable with exception of 0 patch that showed intermittent believe second- degree heart block but no atrial fibrillation He presents now with symptoms that are consistent with a right thalamic infarction which is demonstrable on MRI and occurs without any significant abnormalities on CT angiogram and probably will be without associated abnormalities on echocardiogram but this remains to be established. His exam is absolutely normal his symptoms have resolved Plans are to discharge him on 2 baby aspirin a day really than the one he currently takes in conjunction with the Plavix and have him follow-up with his primary care physician and with neurology in 4-[address] Lane will review the echocardiographic report and if significant abnormalities are found either arrange for cardiology are following up more urgently or to have him come back to the hospital for further assessment Patient has requested discharge as this is a holiday weekend his family is in an frankly the event occurred 48 hours ago there is no obvious source of emboli and his examination today is normal Yehuda Wallace MD
--- NOTE | 2019-03-16 12:18 | Pharmacy Report ---
Pharmacist Stroke Counseling - Date of Service March 16, 2019 - Scope: Pharmacy has been consulted to provide medication discharge counseling for this patient admitted with ischemic stroke as per the Pharmacist Discharge Counseling for Stroke Patients Protocol. - Medications on Discharge: Home Medications Medication Instructions Recorded Confirmed clopidogrel [Plavix] 75 mg PO DAILY 03/15/19 03/15/19 metoprolol tartrate 25 mg PO BID 03/15/19 03/15/19 multivitamin 1 tab PO DAILY 03/15/19 03/15/19 nitroglycerin [Nitrostat] 0.4 mg SUBLINGUAL DIRECTED PRN 03/15/19 03/15/19 omega-3 acid ethyl esters [Lovaza] 2 cap PO DAILY 03/15/19 03/15/19 sertraline 50 mg PO DAILY 03/15/19 03/15/19 zolpidem [Ambien] 5 mg PO HS 03/15/19 03/15/19 New Rx's Medication Instructions Recorded aspirin [Ecotrin Low Strength] 162 mg PO DAILY 30 Days #60 tab 03/16/19 rosuvastatin [Crestor] 5 mg PO HS 30 Days #30 tab 03/16/19 - Action: The above medications, specifically ones for stroke treatment/prophylaxis, have been reviewed in detail with the patient and/or patient sales representative malt liquors(s) prior to discharge. This includes indication, common adverse reactions, drug interactions, and medication administration. Medication counseling has been employed using the teach-back method to ensure understanding. - Outcome: The patient and/or patient sales representative malt liquors(s) have demonstrated understanding of the medications. Please note, they are aware that the pharmacist will call them within 72 hours post-discharge to confirm that the appropriate medications are being taken and answer any further medication related questions the patient might have at that time. Contact information Individual to be contacted: Yehuda Relationship to patient (if applicable): patient Phone number: [phone] Best time to call: anytime Thank you for allowing pharmacy to be involved in the care of this patient. Please call [phone] or [phone] with any additional questions
--- NOTE | 2019-03-16 12:45 | Consultation Report ---
DATE OF CONSULTATION: 03/16/[address] Mcnair. HISTORY OF PRESENT ILLNESS: Yehuda is 68 years old, is right handed, is a patient of Dr. Inderjit Luis, and has a past medical history of coronary artery disease, status post stents in 2007, hypertension, dyslipidemia, peripheral arterial disease with mesenteric artery stenosis, type 2 diabetes with reasonable control of his hemoglobin A1c, history of vertigo of episodic type and had extensive workup last year for causation including Zio patch, scanning, etc., all of which was negative with the exception of some second-degree heart block which is being observed. He has a history of Lyme disease with chronic arthralgias. He has a vague history of a TIA in the past, symptoms unrecalled. He has depression, anxiety, BPH, and presented to [facility] yesterday after having some left-sided numbness and some vague dysequilibrium for about a day. 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 He felt a little lightheaded and noticed numbness of his left arm, face, and leg, but decided to wait to come in until the following day. He was evaluated. His basic labs were pretty unremarkable. EKG revealed a normal sinus rhythm. He continued to be in that without any atrial fibrillation or heart block. He was a little hypertensive. CAT scan was negative. An MRI showed a small 1.7 cm lesion in the right perithalamic zone consistent with a small vessel infarction. He has had evaluations with CTAs, etc., all of which have shown no significant extracranial vascular disease or source of emboli and an echocardiogram is pending at this time in terms of interpretation. The patient is really wanting to be discharged as he is virtually asymptomatic now. The numbness is gone. He is walking in the halls. He can hop on one foot, particularly the left foot with ease. He can even strike yoga-type poses. Has no drift, pronation sign, or indeed any other issues and we are simply going to let him go now on additional aspirin and his chronic Plavix. His problems are as noted above including coronary disease, 3 stents. He has been on aspirin and Plavix ever since. He has got hypertension, type 2 diabetes, dyslipidemia, and his HDL and LDL levels probably could use some improvement. There is talk about switching him to Crestor. He has depression, but otherwise has been under fairly good control. ALLERGIES: HE HAS ALLERGIES TO POLLEN HOME MEDICATIONS: Include aspirin 81 mg, Plavix 75, lisinopril, metoprolol, multivitamins, nitroglycerin, omega 3, sertraline, and zolpidem. There is talk about adding Crestor to his regimen at this point. SOCIAL HISTORY: Reveals him to be . 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 He is a nonsmoker but smoked in the past and does not consume ethanol to any great degree. PAST SURGICAL HISTORY: Reveals he has had a colonoscopy with polypectomy, nasal surgery, inguinal hernia repair, and coronary intervention in the past. He has also had a PCI to right coronary artery, circumflex grafting procedure in 2006. REVIEW OF SYSTEMS: Reveals no recent febrile illnesses, tick bites, fevers, sweats, chills, weight loss, weight gain. No significant issues referable to head, eyes, ears, nose and throat, cardiovascular, pulmonary, gastrointestinal, genitourinary, musculoskeletal, dermatologic, hematologic, or endocrinologic systems other than those related to his chronic active medical problems and referred in the history of the present illness. PHYSICAL EXAMINATION: On exam yesterday, GENERAL: He was well developed, well nourished, was pleasant, did not appear to be in any acute distress. HEENT examination, examination of the neck, cardiovascular exam, examination of the lungs, abdomen, and extremities were all unremarkable. NEUROLOGIC: Today, neurologically he is awake, alert, oriented in 3 spheres without dysarthric speech, with normal eye movements, normal visual spangler, normal facial motility and strength. Normal facial sensation. Gait is absolutely normal. He can walk on heels, toes. Can stand on one leg and the other, hop on one foot and the other. He has normal reflexes, downgoing toes. No extensor toe signs or other pathologic reflexes are appreciated. The tone seems normal and he has normal sensation subjectively to light touch, temperature, and pinprick. Imaging studies were reviewed. I agree that there is a small thalamic infarct which nicely explains his sensory symptoms. It seems to be resolving rapidly, which is typical for the small vessel type of affair. I do not think there is a cardiogenic embolism as it sounds like everything slowly emerged over a period of an hour or so while he was riding a tractor and was preceded by a vague dizziness, then this ascending sensory symptoms, but ____ complained this, we really need to review it. At this point, however, he is going to be discharged. We are going to add an extra aspirin to his regimen. He is going to follow up with his primary care physician. I am going to see him back in about 4-6 weeks and if the echo is abnormal, he will be contacted and if necessary come back to the hospital for further assessment. It is a holiday weekend. His family is visiting and he has been stable neurologically given the fact he is back to baseline now for 48 hours with the onset of the event almost 48 hours ago. YOSEPH
[2019-03-17 06:35] LABS: Estimated Average Glucose 143 mg/dl; Hemoglobin A1C 6.6 % (4.5-5.6)
--- NOTE | 2019-03-17 09:30 | Discharge Summary ---
Date of Service March 24, 2019 Admission HPI Per Admitting Provider This is a 68-year-old male who has a significant past medical history of CAD history of PCI x3 in 2007, HTN, HLD, PAD with mesenteric artery stenosis, T2 DM A1c 6.5, history of TIA, history of Lyme's disease with chronic arthralgias, vertigo, depression and anxiety, BPH who presents to [facility] secondary to dizziness along with left-sided numbness times 1 day. Patient states yesterday afternoon he was getting off tractor whenever he developed dizziness, "wooziness," his left leg buckled. He did not fall. Because of dizziness he went home to lay down to, "sleep it off." He noticed later that evening his left hand felt numb, along with left upper lip. He states "I figured if I woke up in the morning and symptoms were still there I would come get evaluated." Currently upon my evaluation he feels well with occasional, "wooziness." He denies any fever, chills, sweats, recent illness, lightheadedness, syncope, fall, chest pain, palpitations, shortness of breath, LOPEZ, hemoptysis, nausea, vomiting, diarrhea, change in bowel or urinary habits. He has had slight weight gain over the winter months but no swelling of extremities. His appetite is good. Patient notes the dizziness is not new for him as he has been following with outpatient providers for approximately 4 months. He was alarmed due to the change of symptoms with the numbness which prompted evaluation. Patient has been followed by Dr. Hunt in which he underwent zio patch 11/2018 which showed predominant normal sinus rhythm but there was apparent 2-1-second degree AV block type I. It was felt that patient may require a pacer in the future, but not currently. He had a carotid ultrasound back in 08/2018 which revealed no hemodynamic significant stenosis of the bilateral carotids. Saw Dr. Wallace 09/02/19 in which he was felt symptoms are secondary to recurrent vestibulopathy Pt saw [facility] ot[facility] and felt symptoms not likely from BPPV or vestibular dysfunction and was discharged from rehab. 12/24/18 A1C 6.5 12/26/18 patient underwent NM myocardial perfusion imaging study which was negative for inducible ischemia, LVEF 78% 01/09/19 cholesterol panel: Total cholesterol 153, HDL 31, triglycerides 273, LDL 97 (patient is statin intolerant secondary to history of Lyme's disease with chronic arthralgias and does not tolerate statin therefore is on fish oil.) 01/2019 saw nephrology secondary to chronic hyponatremia. It was felt hyponatremia may be secondary to pseudohyponatremia and at this time there is no recommendation for fluid restriction or NaCl tabs. He had a Serum osmolality 291, urine osmolality 238, random urine sodium 58. Discharge Data Consultations 03/15/19 14:26 ED Decision to Admit Stat 03/15/19 18:25 Consult Case Management - Discharge Planning Routine Consult Neurology Routine
--- NOTE | 2019-03-18 13:41 | Pharmacy Report ---
Pharmacist Post D/C Phone Note - Phone Note: Date of phone call: March 18, 2019. Individual with whom pharmacist spoke to: CHARLENE JIMENEZ The patient and/or patient student services representative(s) were unable to be reached for a follow-up phone call within the 72 hour time frame. Discharge counseling pharmacist contact information has already been provided to the patient should questions arise. Thank you for allowing us to be involved in the care of this patient. - Home Medications: Home Medications Medication Instructions Recorded Confirmed clopidogrel [Plavix] 75 mg PO DAILY 03/15/19 03/15/19 metoprolol tartrate 25 mg PO BID 03/15/19 03/15/19 multivitamin 1 tab PO DAILY 03/15/19 03/15/19 nitroglycerin [Nitrostat] 0.4 mg SUBLINGUAL DIRECTED PRN 03/15/19 03/15/19 omega-3 acid ethyl esters [Lovaza] 2 cap PO DAILY 03/15/19 03/15/19 sertraline 50 mg PO DAILY 03/15/19 03/15/19 zolpidem [Ambien] 5 mg PO HS 03/15/19 03/15/19 New Rx's Medication Instructions Recorded aspirin [Ecotrin Low Strength] 162 mg PO DAILY 30 Days #60 tab 03/16/19 rosuvastatin [Crestor] 5 mg PO HS 30 Days #30 tab 03/16/19
--- NOTE | 2019-03-18 13:56 | Pharmacy Report ---
Pharmacist Post D/C Phone Note - Phone Note: Date of phone call: March 18, 2019. Individual with whom pharmacist spoke to: CHARLENE ESPINOZAPASCUALESTELITA The following questions were reviewed during the phone call with responses listed below each: Can you tell me the medications that you are currently taking as well as when and how you take each medication? -See Table Below When have you missed any doses of your medications? - [] What side effects are you having from your medications, specifically, the new medications you were started on? - [] What questions do you have about your medications? - [] What problems are you having obtaining your medications? - [] When is your next appointment with your primary care doctor? - [] Additional comments: - [] As per the Pharmacist Discharge Counseling for Stroke Patients Protocol, this phone call has been completed within 72 hours of discharge. Thank you for allowing us to be involved in the care of this patient. OR The patient and/or patient packaging sales representative(s) were unable to be reached for a follow-up phone call within the 72 hour time frame. Discharge counseling pharmacist contact information has already been provided to the patient should questions arise. Thank you for allowing us to be involved in the care of this patient. - Home Medications: Home Medications Medication Instructions Recorded Confirmed clopidogrel [Plavix] 75 mg PO DAILY 03/15/19 03/15/19 metoprolol tartrate 25 mg PO BID 03/15/19 03/15/19 multivitamin 1 tab PO DAILY 03/15/19 03/15/19 nitroglycerin [Nitrostat] 0.4 mg SUBLINGUAL DIRECTED PRN 03/15/19 03/15/19 omega-3 acid ethyl esters [Lovaza] 2 cap PO DAILY 03/15/19 03/15/19 sertraline 50 mg PO DAILY 03/15/19 03/15/19 zolpidem [Ambien] 5 mg PO HS 03/15/19 03/15/19 New Rx's Medication Instructions Recorded aspirin [Ecotrin Low Strength] 162 mg PO DAILY 30 Days #60 tab 03/16/19 rosuvastatin [Crestor] 5 mg PO HS 30 Days #30 tab 03/16/19
--- NOTE | 2019-03-20 07:32 | Discharge Summary ---
Date of Service March 20, 2019 Admission HPI Per Admitting Provider This is a 68-year-old male who has a significant past medical history of CAD history of PCI x3 in 2007, HTN, HLD, PAD with mesenteric artery stenosis, T2 DM A1c 6.5, history of TIA, history of Lyme's disease with chronic arthralgias, vertigo, depression and anxiety, BPH who presents to [facility] secondary to dizziness along with left-sided numbness times 1 day. Patient states yesterday afternoon he was getting off tractor whenever he developed dizziness, "wooziness," his left leg buckled. He did not fall. Because of dizziness he went home to lay down to, "sleep it off." He noticed later that evening his left hand felt numb, along with left upper lip. He states "I figured if I woke up in the morning and symptoms were still there I would come get evaluated." Currently upon my evaluation he feels well with occasional, "wooziness." He denies any fever, chills, sweats, recent illness, lightheadedness, syncope, fall, chest pain, palpitations, shortness of breath, LOPEZ, hemoptysis, nausea, vomiting, diarrhea, change in bowel or urinary habits. He has had slight weight gain over the winter months but no swelling of extremities. His appetite is good. Patient notes the dizziness is not new for him as he has been following with outpatient providers for approximately 4 months. He was alarmed due to the change of symptoms with the numbness which prompted evaluation. Patient has been followed by Dr. Hunt in which he underwent zio patch 11/2018 which showed predominant normal sinus rhythm but there was apparent 2-1-second degree AV block type I. It was felt that patient may require a pacer in the future, but not currently. He had a carotid ultrasound back in 08/2018 which revealed no hemodynamic significant stenosis of the bilateral carotids. Saw Dr. Grimm 09/02/19 in which he was felt symptoms are secondary to recurrent vestibulopathy Pt saw [facility] otolaryngology [facility] and felt symptoms not likely from BPPV or vestibular dysfunction and was discharged from rehab. 12/24/18 A1C 6.5 12/26/18 patient underwent NM myocardial perfusion imaging study which was negative for inducible ischemia, LVEF 78% 01/09/19 cholesterol panel: Total cholesterol 153, HDL 31, triglycerides 273, LDL 97 (patient is statin intolerant secondary to history of Lyme's disease with chronic arthralgias and does not tolerate statin therefore is on fish oil.) 01/2019 saw nephrology secondary to chronic hyponatremia. It was felt hyponatremia may be secondary to pseudohyponatremia and at this time there is no recommendation for fluid restriction or NaCl tabs. He had a Serum osmolality 291, urine osmolality 238, random urine sodium 58. Admission Exam Per Admitting Provider Gen: WD/WN, M, NAD, sitting up in bed, pleasant, conversing easily Head: Normocephalic, Atraumatic Eyes: Sclera normal, no conjunctival injection, PERRLA, EOMI, horizontal nystagmus R eye ENT: Gross hearing intact, inner ear canal and EAC WNL b/l, TM visualized and normal, normal pharynx, mucous membranes moist Neck: supple, no adenopathy, No JVD, no bruit, Resp: Clear to auscultation b/l, no wheeze, rales, rhonchi. Normal insp/exp effort, no accessory muscle use CV: Regular rate, regular rhythm, no murmur, rub, gallop, or ectopy Abd: +BS x 4, soft, nontender, nondistended Musculoskeletal: moves extremities active rom x 4, strength intact, good it professional strength Extremities: No edema bilaterally Skin: warm, moist, no rash, negative turgor, cap refill < 2sec Neuro: Alert and oriented x 3, speech normal, good mood/affect, cran nerve 2-12 intact grossly, b/l patellar, Achilles, biceps reflex +2 : deferred Principal Diagnosis ACUTE CVA Discharge Exam General- oriented x 3, not in distress, speaks in sentences with no effort or accessory muscle use Eyes- anicteric Neck- no JVD Lungs- clear breath sounds bilaterally Heart- normal rate, regular rhythm; no murmurs Abdomen- normal bowel sounds, nondistended, soft, nontender Extremities- no pretibial edema, no calf tenderness Neuro- alert, oriented x 3; no gross focal neurologic deficits Skin- warm & dry Discharge Data Allergies Allergy/AdvReac Type Severity Reaction Status Date / Time pollen extracts Allergy Intermediate chest/nasal Verified 03/15/19 13:11 congestion Consultations 03/15/19 14:26 ED Decision to Admit Stat 03/15/19 18:25 Consult Case Management - Discharge Planning Routine Consult Neurology Routine Ordered Studies 03/15/19 12:03 CT head/brain wo con Stat FINDINGS: No intra or extra-axial mass lesions are visualized. There is no CT evidence of acute cortical infarction. There is no evidence of midline shift. There is no acute hemorrhage. No calvarial fractures are visualized. There are patchy minor matter hypodensities likely on a small vessel basis. There is no evidence of pathologic ventricular dilatation. Postsurgical changes are present in the paranasal sinuses. There is no evidence of acute sinusitis. IMPRESSION: No acute intracranial findings 03/15/19 16:07 MR brain wo con Stat FINDINGS: Sagittal T1, axial diffusion, proton density and T2 weighted axial, coronal FLAIR, and axial T1-weighted images were acquired. No intra or extra-axial mass lesions are visualized There is 7 mm focus of restricted water diffusion within the right lateral thalamus consistent with an acute/subacute infarct. There is no evidence of ventricular dilatation. Proton density T2-weighted and FLAIR images reveal scattered foci of increased T2 signal within the white matter, likely on a small vessel basis. There is a focus of increased T2 signal corresponding to the acute/subacute right thalamic infarct. There is a lacunar infarct adjacent to the right lateral ventricle anteriorly. There are no abnormal flow voids. IMPRESSION: 1. 7 mm acute/subacute infarct within the right lateral thalamus. 03/15/19 18:25 CT angio head w con Stat FINDINGS: There are no lesion suspicious for aneurysm. There are no major intracranial branch occlusions. The dural venous sinuses appear patent. IMPRESSION: Unremarkable CT angiography of the brain. CT angio neck with con Stat Findings: There is a 21 mm left lobe thyroid nodule. A nonemergent thyroid ultrasound is recommended in follow-up. The right carotid revealed no evidence of aneurysm and no evidence of dissection. There is no evidence of hemodynamic significant stenosis. There is moderate calcific plaque at the level of the bulb. The left carotid revealed no evidence of hemodynamic significant stenosis. There is no evidence of aneurysm. There is no evidence of dissection. There is moderate calcific plaque at the level of the bulb. There is no evidence of hemodynamically significant vertebral stenosis. There is no evidence of vertebral dissection. There is a dominant left vertebral artery. IMPRESSION: 1. Moderate calcific plaque at the level of both carotid bulbs. No evidence of unilaterally significant carotid stenosis 2. Dominant left vertebral. No evidence of vertebral artery stenosis 3. 21 mm left lobe thyroid nodule. Nonemergent thyroid ultrasound is recommended in follow-up. Hospital Course (1) CVA (cerebral vascular accident): ACUTE CVA RIGHT LATERAL THALAMUS This is a 68-year-old male who has a significant past medical history of CAD history of PCI x3 in 2007, HTN, HLD, PAD with mesenteric artery stenosis, T2 DM A1c 6.5, history of TIA, history of Lyme's disease with chronic arthralgias, vertigo, depression and anxiety, BPH who presents to [facility] secondary to dizziness along with left-sided numbness times [address] brain negative for acute abnormality MRI Brain: 1. 7 mm acute/subacute infarct within the right lateral thalamus. CT angio head: Unremarkable CT angiography of the brain. CT neck: 1. Moderate calcific plaque at the level of both carotid bulbs. No evidence of unilaterally significant carotid stenosis 2. Dominant left vertebral. No evidence of vertebral artery stenosis 3. 21 mm left lobe thyroid nodule. Nonemergent thyroid ultrasound is recommended in follow-up. Echo: no wall motion abnormalities, normal EF, no interatrial shunt A1c 6.6 TG 403, LDL could not be measured Neurologist consulted recommended to increase Aspirin to 162mg daily, continue Plavix add Crestor, monitor for side effects, patient has history of side effects with other Statins patient's neurologic symptoms resolved on discharge day PT/OT cleared for discharge ff up with Dr. Grimm in 4-6 weeks (2) CAD (coronary artery disease): hx of stent x 3 RCA, Cx and OM in 2006 continue ASA, Plavix hold Lisinopril until seen by Dr. Cárdenas 03/19 continue Bblocker (3) HTN (hypertension): hold Lisinopril until seen by Dr. Cárdenas 03/19 to avoid hypotension post stroke continue Bblocker (4) T2DM (type 2 diabetes mellitus): Last A1C 6.5 11/2018 a1c 6.6--> ff up as outpatient (5) HLD (hyperlipidemia): TG 403, LDL could not be measured continue Lovaza add Crestor, monitor for side effects, patient has history of side effects with other Statins (6) Chronic hyponatremia: Na 135 (7) Depression with anxiety: stable continue zoloft THYROID NODULE seen on CT angio neck: 21 mm left lobe thyroid nodule. Nonemergent thyroid ultrasound is recommended in follow-up. TSH 1.21 - thyroid US, ff up as outpatient (8) DVT prophylaxis: Disposition: d/c to home ff up with PCP 03/19 ff up with Neuro 4-6 weeks Total Time Total Time Spent Total Time Spent (In Minutes): 40 minutes Discharge Plan Discharge Items Patient Disposition: Home - Self-Care Reason For Visit: DIZZINESS,,CVA W/U Discharge Diagnosis: ACUTE STROKE, RIGHT THALAMUS Condition: Good Discharge Goals: Diagnostic testing and Therapeutic intervention Activity: As commented below Activity Comment: NO HEAVY EXERTION UNTIL RE-EVALUATED BY PRIMARY CARE PHYSICIAN Lifting: Wait until after follow-up appointment Exercise/Sports: Wait until after follow-up appointment Driving/Machine Use Comment: NO DRIVING UNTIL RE-EVALUATED BY PRIMARY CARE PHYSICIAN. Non-emergency contact: Primary Care Provider Call non-emergency contact if: you have any medication questions Follow-up/Referrals: Inderjit Cárdenas MD [Primary Care Provider] - Yehuda Grimm MD [Physician] - Diet: Carb Consistent or DM2 and Heart Healthy Addtl Provider Instructions: PLEASE FOLLOW UP WITH DR. CÁRDENAS IN 3-5 DAYS. THE CLINIC WILL CALL YOU FOR THE APPOINTMENT. PLEASE FOLLOW UP WITH NEUROLOGIST DR. GRIMM IN 4-6 WEEKS. PLEASE CALL HIS OFFICE TO SETUP AN APPOINTMENT. CONTACT INFO OUTLINED ABOVE. RECORD YOUR BLOOD PRESSURE DAILY AND CALL DR. CÁRDENAS IMMEDIATELY IF BLOOD PRESSURE/TOP NUMBER IS ABOVE 170. ALWAYS TAKE ASPIRIN WITH A FULL STOMACH. CALL DR. CÁRDENAS IMMEDIATELY IF YOU EXPERIENCE MUSCLE ACHES, WEAKNESS. . Who to Call and When: Medical Emergencies: Call 911 immediately if you experience any of the following warning signs and symptoms of Stroke: * Sudden numbness or weakness of the face, arm or leg, especially on one side of the body * Sudden confusion, trouble speaking or understanding * Sudden trouble seeing in one or both eyes * Sudden trouble walking, dizziness, loss of balance or coordination * Sudden severe headache with no cause Do not delay calling 911 if you experience any warning signs or symptoms of a stroke. Delay in seeking medical attention may affect what treatments can be given to you. Risk Factors for Stroke: You can reduce your chances of stroke by working with your medical provider to adopt a healthy lifestyle. Some specific ways to lower your chance of stroke are: * If you are a smoker, now is the time to stop smoking cigarettes * If you are diabetic, improve the control of your blood sugars * Avoid excessive amounts of alcohol * Control high blood pressure * Lose weight if you are overweight * Be sure to lead an active lifestyle * Eat a healthy diet low in salt, cholesterol and fat You should know about other risk factors for stroke that you are unable to control. These include: * Age 55 years or older * Male gender * Certain racial groups: , or / * Family History of Stroke, Mini stroke or Heart Attack * Sickle Cell Disease Follow Up: It is important for you to keep your follow up appointments with your medical provider. Prescriptions: New rosuvastatin [Crestor] 5 mg Tablet 5 mg PO HS 30 Days Qty: 30 RF: 1 aspirin [Ecotrin Low Strength] 81 mg Tablet,Delayed Release (Dr/Ec) 162 mg PO DAILY 30 Days Qty: 60 RF: 1 Continued multivitamin Tablet 1 tab PO DAILY RF: 0 clopidogrel [Plavix] 75 mg tablet 75 mg PO DAILY RF: 0 metoprolol tartrate 50 mg Tablet 25 mg PO BID RF: 0 nitroglycerin [Nitrostat] 0.4 mg tablet, sublingual 0.4 mg sublingual DIRECTED PRN (Reason: Chest Pain) RF: 0 zolpidem [Ambien] 5 mg tablet 5 mg PO HS RF: 0 sertraline 50 mg Tablet 50 mg PO DAILY RF: 0 omega-3 acid ethyl esters [Lovaza] 1 gram Capsule 2 cap PO DAILY RF: 0 Discontinued aspirin 81 mg Tablet,Delayed Release (Dr/Ec) 81 mg PO DAILY RF: 0 lisinopril [Zestril] 30 mg tablet 30 mg PO DAILY RF: 0 Stand-Alone Forms: Medications to Prevent Stroke, [facility] Discharge Orders: Discharge Order (Routine); Ordered 03/16/19 Ordered By: Eddie Mcnair Admission Data Admit Date/Time: 03/15/19 15:12 Attending Provider: Eddie Mcnair Admit Provider: Eddie Mcnair Primary Care Provider: Inderjit Cárdenas Other Providers: Yehuda Grimm Robin A Service: Telemetry Other Interventions: Discharge Summary Assessment (RN) Last Done: 03/16/19 11:34 DC Date/Time DO NOT enter until pt leaves facility: 03/16/19 12:23
== END 2019-03-16 12:23 | disposition home or self-care (01) | DRG 65 ==
LOC: ED 11:38 → 2N 15:12
DX: I25.10 Atherosclerotic heart disease of native coronary artery without angina pectoris; I73.9 Peripheral vascular disease, unspecified; E11.52 Type 2 diabetes mellitus with diabetic peripheral angiopathy with gangrene; I63.89 Other cerebral infarction; F41.8 Other specified anxiety disorders; E87.1 Hypo-osmolality and hyponatremia; I10 Essential (primary) hypertension; E78.5 Hyperlipidemia, unspecified